=== PATIENT | male | born 1980 | race Caucasian/White ===

== ENCOUNTER 2023-03-31 11:59 | Emergency (ER) | payer OTHER ==
[2023-03-31 12:16] VITALS: TEMP 98.7; BMI 19.9
[2023-03-31] MEDS ORDERED: SODIUM CHLORIDE 0.9% 500 ML INFUS.BAG IV ONE ×2 (12:18→15:32)
[2023-03-31] MEDS ORDERED: FAMOTIDINE 20 MG/50 ML IVPB 20 MG/50 ML MG IVPB ONE ×2 (12:18→12:33)
[2023-03-31] MEDS ORDERED: METOCLOPRAMIDE HCL INJECTION 10 MG/2 ML VIAL IVPUSH ONE (12:18)
[2023-03-31] MEDS ORDERED: HYDROmorphone HCL/PF 1 MG/ML VIAL IVPUSH ONE (12:18)
[2023-03-31] MEDS ORDERED: HYDROmorphone HCL/PF 1 MG/ML VIAL ONE ×3 (12:32→15:43)
[2023-03-31] MEDS ORDERED: METOCLOPRAMIDE HCL INJECTION 10 MG/2 ML VIAL ONE (12:33)
[2023-03-31 13:24] LABS: HEMATOCRIT 49.1 % (35.4-49); HEMOGLOBIN 16.9 G/dL (11.7-16.9); MCH 36.6 pg (25.7-33.7); MCHC 34.3 g/dl (32.0-35.9); MEAN CELL VOLUME 106.4 fl (80-96); MEAN PLT VOLUME 6.3 fl (7.5-11.1); PLATELET COUNT 317.7 10^3/uL (134-434); RBC 4.61 10^6/uL (4.00-5.60); RDW 13.3 % (11.9-15.9); WHITE BLOOD COUNT 9.3 10^3/uL (4.0-10.8)
[2023-03-31] MEDS ORDERED: HYDROmorphone HCl 2 MG/ML VIAL IVPUSH ONE ×2 (13:39→15:33)
[2023-03-31] MEDS ORDERED: ACETAMINOPHEN 1000 MG/100 ML BAG IVPB ONE (13:39)
[2023-03-31] MEDS ORDERED: ACETAMINOPHEN INJECTION 100 ML IVPB ONE (13:46)
[2023-03-31 13:52] LABS: ALBUMIN 4.7 g/dl (3.4-5.0); BILIRUBIN,TOTAL 0.4 mg/dl (0.2-1); BLOOD UREA NITROGEN 13.2 mg/dl (7-18); CALCIUM 9.6 mg/dl (8.5-10.1); CREATININE 0.9 mg/dl (0.6-1.3); POTASSIUM 4.3 mmol/L (3.5-5.1); SGOT/AST 43.7 U/L (15-37); SGPT/ALT 51.2 U/L (7-52)
[2023-03-31 14:31] LABS: MACROCYTOSIS 2+; PLATELET ESTIMATE ADEQUATE
[2023-03-31] MEDS ORDERED: ONDANSETRON 4 MG/2 ML VIAL IVPUSH ONE (15:31)
[2023-03-31] MEDS ORDERED: MAG HYDROX/AL HYDROX/SIMETH 30 ML UNIT-DOSE CUP PO ONE (15:32)
[2023-03-31] MEDS ORDERED: ONDANSETRON 4 MG/2 ML VIAL ONE (15:43)
[2023-03-31] MEDS ORDERED: MAG HYDROX/AL HYDROX/SIMETH 30 ML UNIT-DOSE CUP ONE (15:49)
[2023-03-31 17:16] VITALS: BP 130/78; PULSE 64; RESP 16
== END 2023-03-31 17:15 | disposition home or self-care (01) ==
LOC: FER 11:59
PROC: 3E033GC Introduction of Other Therapeutic Substance into Peripheral Vein, Percutaneous Approach (ICD-10-PCS; principal; 2023-03-31)
PROC: 3E033GC Introduction of Other Therapeutic Substance into Peripheral Vein, Percutaneous Approach (ICD-10-PCS; 2023-03-31)
PROC: 3E033GC Introduction of Other Therapeutic Substance into Peripheral Vein, Percutaneous Approach (ICD-10-PCS; 2023-03-31)
PROC: 3E033GC Introduction of Other Therapeutic Substance into Peripheral Vein, Percutaneous Approach (ICD-10-PCS; 2023-03-31)
PROC: 3E033GC Introduction of Other Therapeutic Substance into Peripheral Vein, Percutaneous Approach (ICD-10-PCS; 2023-03-31)
PROC: 3E033NZ Introduction of Analgesics, Hypnotics, Sedatives into Peripheral Vein, Percutaneous Approach (ICD-10-PCS; 2023-03-31)
PROC: 3E033NZ Introduction of Analgesics, Hypnotics, Sedatives into Peripheral Vein, Percutaneous Approach (ICD-10-PCS; 2023-03-31)
DX: M54.9 Dorsalgia, unspecified (principal); R11.2 Nausea with vomiting, unspecified; R10.9 Unspecified abdominal pain
CPT/HCPCS: 36415; 71045-TC-FY; 80053; 83690; 85027; 99285-25